=== PATIENT | male | born 1955 | race Caucasian/White ===

== ENCOUNTER → 2024-12-09 08:49 | Outpatient (REF) | payer OTHER, SELFPAY | LOC: MRI 08:49 | PROVIDERS: ATTENDING PHYSICIAN Internal Medicine Cardiovascular Disease; FAMILY PHYSICIAN Internal Medicine | DX: I48.92 Unspecified atrial flutter (principal); R94.31 Abnormal electrocardiogram [ECG] [EKG] | CPT/HCPCS: 75561; 75565; A9585 ==

== ENCOUNTER 2025-02-02 05:56 | Day surgery (SDC) | payer OTHER, SELFPAY ==
[2025-01-23 08:36] VITALS: BMI 28.8
[2025-01-23 09:00] LABS: Hematocrit 45.4 % (39.0-52.0); Hemoglobin 15.7 g/dL (13.0-18.0); Mean Corp Hgb Conc. 34.6 g/dL (33.0-37.0); Mean Corpuscular Volume 90.4 fL (80.0-94.0); Nucleated Red Blood Cells % 0 % (-); Platelet Count 321 10^3/uL (130-400); Red Cell Dist. Width 13.2 % (11.5-14.5)
[2025-01-23 09:32] LABS: INR 2.54; PT 27.5 Sec (11.4-14.6)
[2025-01-23 09:36] LABS: ALT (SGPT) 34 U/L (0-50); AST (SGOT) 32 U/L (17-59); Albumin 5.1 g/dl (3.5-5.0); Alkaline Phosphatase 41 U/L (38-126); Blood Urea Nitrogen 17 mg/dl (9-20); Calcium 9.9 mg/dl (8.4-10.2); Carbon Dioxide 28 mmol/L (22-30); Chloride 103 mmol/L (98-107); Estimated Creatinine Clearance 77 ml/min; Glucose 94 mg/dl (70-99); Magnesium 2.2 mg/dl (1.6-2.3); Potassium 4.8 mmol/L (3.5-5.1); Sodium 139 mmol/L (135-145); Total Protein 8.1 g/dl (6.3-8.2); eGFR > 60.00
[2025-02-02] VITALS (23 sets, daily range): BP systolic 80–126; BP diastolic 50–78; BMI 27.1
[2025-02-02 08:42] LABS: ACT-LR - POC 343 Seconds (116-155)
--- NOTE | 2025-02-02 08:59 | ITS.CL.ABL ---
Catalogue Librarian - Ablation
Ablation
Procedure Report:
ELECTROPHYSIOLOGY ABLATION STUDY
DATE:: February 02, 2025�����������������������������REFERRING: Dr. Philip Brown
INDICATION: Paroxysmal supraventricular tachycardia in the form of atrial fibrillation.��Also noted to have atypical atrial flutter. Has a history of apical hypertrophic cardiomyopathy variant. Prior history of left atrial posterior wall and roof
atrial flutter with ablation in the posterior wall limited by esophageal heating at the 2019 procedure.
HISTORY: See H and P.
ANTIARRHYTHMIC DRUG: Metoprolol only given the apical hypertrophic variant
PRE-PROCEDURE JADEN: No intracardiac thrombus
PRESENTING RHYTHM: Atrial fibrillation
'TIME-OUT':��called and confirmed.
SEDATION/ANESTHESIA:��provided via the anesthesia department using general anesthesia (LMA).
INTRAVENOUS/ARTERIAL ACCESS:
Right femoral venous -8Fr
Left femoral venous - 8 Fr, 6 Fr
Kvuzfr-eb-evvhg suture bilaterally. Of note the patient did tell me that he had lymphatic drainage for 1 to 2 days from the left femoral venous access at last procedure. Great care was taken to perform front wall access directly into the vein.
Ultrasound guidance for bilateral femoral vein access was utilized by me to obtain access with demonstration of normal anatomy
CHADS-VASC Score:
HAS-Bled Score
PROCEDURE:
1.��A decapolar CS catheter was placed within the CS for mapping and pacing.��This was also used as the reference catheter for the 3-D map.
2. The intracardiac ultrasound catheter was positioned in the RA to identify the FO for targeting of transseptal puncture, assist��in identification of the pulmonary vein ostia, monitoring pre and post ablation pulmonary vein flow velocities,
monitoring for 'bubble' formation during RF application as a sign of thermal injury,��and to monitor for pericardial effusion during mapping and ablation procedure.���Left atrial size, LV ejection fraction, and pulmonary vein flows were monitored
pre and post ablation procedure. The other valves were inspected and found to be free of significant regurgitation or stenosis.
3.��Half of the calculated heparin bolus was administered prior to the first transeptal puncture.��Transseptal puncture was performed to diagnose RA and LA pressure so that safety of LA mapping and ablation could be further assessed, and to access
the left atrium and pulmonary veins for mapping and ablation.��This entailed advancing an 10 [place] steerable sheath with dilator into the superior vena cava and withdrawing both (monitoring intracardiac ultrasound, fluoroscopy and tip pressure)
with the tip oriented toward the atrial septum.��The fossa ovalis was engaged (indicated by sudden displacement of the sheath tip as well as tenting of the fossa seen on intracardiac ultrasound).��Left atrial access required a pass with the
Brockenbrough needle extended.��Left atrial catheter position was confirmed by pressure monitoring (RA mean pressure 2 mm Hg and LA mean pressure 8 mm Hg), LA saturation (99%),��as well as fluoroscopy.��The sheath was advanced over the dilator and
positioned in the left atrium.��This procedure was repeated for the Agilis sheath.��The remainder of the calculated heparin bolus was administered and heparin was
infused to maintain ACT at 300 -350 seconds throughout the case.
4.��RA pacing was performed via the proximal decapolar poles and LA pacing was performed via the distal decapolar poles.
5. A quadrapolar catheter was first positioned at the His position for His Bundle recording which was tagged via the 3-D Navex sytem, and then passed to the RVA for RV pacing and recording.
6. The 9 mm lattice was placed in each of the LIPV, LSPV, RSPV and the RIPV.��
7.��Next, a 3-D map was created using Navex.���A 3-D reconstructed CT image was compared to the 3-D Navex map to assist in anatomic interpretation, mapping and ablation.��The CT image and the NavX image were fused.
8. Electroanatomic voltage mapping was performed in atrial fibrillation. There was patchy areas of fractionated electrograms in the posterior wall particularly towards the roof and the floor of the left atrium. There was focal connection on the
ligament of Chele at the left inferior pulmonary vein predominantly on the left atrial appendage aspect of the ligament. We then performed ablation with pulsed field energy on the ligament of Chele for the left. Pulmonary vein and then a
posterior wall box lesion set with a roof and floor line and posterior lines connecting the roof and floor line. This rendered left inferior pulmonary vein with entrance block and the posterior wall isolated from roof to floor. Despite all this
atrial fibrillation persisted and the patient was cardioverted to sinus rhythm. Entrance and exit block was confirmed in all 4 pulmonary veins as well as the appendage side of the ligament of Chele, the base of the left atrial appendage, as well
as the posterior wall from roof down to the floor. We then performed EP study down to atrial refractoriness with biatrial stimulation. Atrial extrastimuli and burst atrial pacing down to refractoriness was performed without inducibility for other
tachyarrhythmias.
9. Wlouyr-fm-mwiaf suture bilaterally to each of the pulmonary veins.
TOTAL FLOURO TIME: 12.3 minutes 123 mGy
TOTAL RF DURATION: 0 minutes
REVERSAL OF HEPARIN: 35 mg of protamine, slow IV administration
COMPLICATIONS:
None
Intracardiac US shows no pericardial effusion post ablation.
SUMMARY:��
Complex left atrial mapping and ablation.
Reisolation of left inferior pulmonary vein as well as the left atrial posterior wall with PFA. At prior procedure we were limited in posterior wall ablation for the left atrial posterior wall flutter by esophageal heating with radiofrequency
energy. Patient was noninducible for tachyarrhythmia post ablation.
RECOMMENDATIONS:
1. Ambulate in 4 hours
2. Resume anticoagulation
3.��Can consider amiodarone therapy given his history of hypertrophic cardiomyopathy if he has recurrence versus convergent maze procedure
4.��As above consider same-day discharge
Copy to: Dr. Philip Brown
[2025-02-02] MEDS: TYLENOL 650 MG PO (10:09)
[2025-02-02] MEDS: ANESTHETIC LOZENGE 1 LOZENGE PO (11:35)
--- NOTE | 2025-02-02 13:06 | W.PN.UPDATE ---
Update Note
Progress Note Update
69 yo WM s/p PVI (Same day). He denies cp, sob, luiz diet, voiding, b/l groins c/d/i no HT< soft, EKG SR. He will resume Xarelto tonight after 3pm, then gradually move to am over the next 3 days. Actiovity restrictions reviewed. He will f/u Dr. Brown
in 1 mo. He is for d/c home after 2p if groins stable.
== END 2025-02-02 14:05 | disposition home or self-care (01) ==
LOC: CATH 05:56
PROVIDERS: ATTENDING PHYSICIAN Internal Medicine Cardiovascular Disease; FAMILY PHYSICIAN Internal Medicine; OTHER PHYSICIAN Internal Medicine Cardiovascular Disease
DX: I48.0 Paroxysmal atrial fibrillation (principal); I48.4 Atypical atrial flutter; I10 Essential (primary) hypertension; I47.10 Supraventricular tachycardia, unspecified; M10.9 Gout, unspecified; I42.2 Other hypertrophic cardiomyopathy; Z79.01 Long term (current) use of anticoagulants; Z79.899 Other long term (current) drug therapy; Z88.0 Allergy status to penicillin; G47.33 Obstructive sleep apnea (adult) (pediatric); E78.5 Hyperlipidemia, unspecified; Z88.1 Allergy status to other antibiotic agents; Z90.49 Acquired absence of other specified parts of digestive tract; G47.00 Insomnia, unspecified
CPT/HCPCS: C1894; C1730; C1733; C1766; C1892; C1759; 36415; 80053; 83735; 85025; 85347; 85610; 86850; 86900; 86901; 93005; 93656